=== PATIENT | female | born 1970 | race Caucasian/White ===

== ENCOUNTER 2018-01-09 13:00 | Outpatient (REF) | payer MEDICAID, SELFPAY ==
--- NOTE | 2018-01-09 13:00 | PAPFT_PTH ---
PATIENT: OWEN CARDENAS LOC: [facility]#:[id number] AGE/SX: 47/F ROOM: RE01/09/[address]: Maribel Pepper : 1970 BED: DIS: 01/09/2018 SPEC #: [id number] RECD: 01/12/18 12:42 STATUS: SCOT REPierre #: [id number] JASON: 01/09/18 13:[address]: Maribel Pepper DEPT: [facility] Cytology RECD BY: Debora Saxena Tissues: 1 - CX/ENDOCX FOR PAP SMEARS Procedures: PAP THIN PREP/[facility] Screening HPV DNA PROBE Comments: [id number]
== END 2018-01-09 13:20 ==
LOC: NCHCN 13:00
PROVIDERS: PCP Physician Assistant Medical; Visit Provider Physician Assistant Medical
DX: Z12.4 Encounter for screening for malignant neoplasm of cervix (principal); Z11.51 Encounter for screening for human papillomavirus (HPV)
CPT/HCPCS: 88142; 87624